=== PATIENT | female | born 1980 | race Caucasian/White ===

== ENCOUNTER 2016-04-15 09:33 | Inpatient (IN) | payer OTHER ==
[2016-04-15] MEDS ORDERED: traMADol 50 MG TAB PO PRN (14:17)
[2016-04-15] MEDS: KETOROLAC 15 MG/1 ML SDV IVP SCH ×2 (15:21→21:02)
[2016-04-15 15:52] LABS: % IMMATURE GRANULYOCYTES 0.4 % (0.0-1.1); ABSOLUTE IMMATURE GRANULOCYTES 0.06 10^3/uL (0.00-0.10); ADD DIFF? NO; ADD MORPH? NO; ADD SCAN? NO; ATYPICAL LYMPHOCYTE FLAG 0 (0-99); FRAGMENT RBC FLAG 0 (0-99); HEMATOCRIT 34.7 % (38.0-47.0); HEMOGLOBIN 11.6 g/dL (12.6-16.3); LEFT SHIFT FLG 0 (0-99); LIPEMIA HEMOLYSIS FLAG 80 (0-99); MEAN CELL HEMOGLOBIN 29.6 pg (27.9-34.1); MEAN CELL HEMOGLOBIN CONCENTR. 33.4 g/dL (32.4-36.7); MEAN CELL VOLUME 88.5 fL (81.5-99.8); MEAN PLATELET VOLUME 9.5 fL (8.7-11.7); PLATELET CLUMPS FLAG 10 (0-99); PLATELET COUNT 515 10^3/uL (150-400); RED BLOOD CELL COUNT 3.92 10^6/uL (4.18-5.33); RED CELL DISTRIBUTION WIDTH 12.3 % (11.5-15.2)
[2016-04-15] MEDS ORDERED: ZOLPIDEM TARTRATE 5 MG TAB PO PRN (15:59)
[2016-04-15] MEDS: ERTAPENEM 1 GM in NS 100 ML IV SCH (16:30)
[2016-04-15 16:31] LABS: ALANINE AMINOTRANSFERASE 26 IU/L (9-52); ALBUMIN 3.5 g/dL (3.5-5.0); ALKALINE PHOSPHATASE 86 IU/L (38-126); ANION GAP 15 mEq/L (8-16); ASPARTATE AMINOTRANSFERASE 16 IU/L (14-46); BILIRUBIN,TOTAL 0.6 mg/dL (0.1-1.4); CALCIUM 9.5 mg/dL (8.5-10.4); CARBON DIOXIDE 25 mEq/l (22-31); CHLORIDE 99 mEq/L (97-110); CREATININE 0.7 mg/dL (0.6-1.0); GLOMERULAR FILTRATION RATE > 60; GLUCOSE 105 mg/dL (70-100); POTASSIUM 4.2 mEq/L (3.5-5.2); SODIUM 139 mEq/L (134-144)
[2016-04-15] MEDS ORDERED: KETOROLAC 15 MG/1 ML SDV IM SCH (18:00)
[2016-04-15 18:54] LABS: COLOR YELLOW; LEUKOCYTE ESTERASE,URINE NEGATIVE (NEGATIVE); NITRITE,URINE NEGATIVE (NEGATIVE)
--- NOTE | 2016-04-15 20:02 | GHP ---
[f rep st] HISTORY AND PHYSICAL CHIEF COMPLAINT: Persistent pelvic pain, possible endometritis, unresponsive to outpatient therapy. HISTORY OF PRESENT ILLNESS: The patient is a 35-year-old, G1, P0, who was first diagnosed with intra uterine in January 2016. Ultrasound also noted at that time a 10 cm large fibroid, possib ly was pedunculated versus adnexal mass. The patient was noted to have cardiac activity with an intr auterine at 7 weeks and transferred to [facility] for OB care. She was noted a f ew weeks later in February 2016, to have a missed AB and patient was offered several treatment option s including outpatient D and C which she elected to do. She underwent D and C on 02/28/2016. She di d have a Pap before that that showed low-grade SABRINA plus possible bacterial vaginosis. Soon after the D and C, the patient developed pelvic pain that was moderate. It was felt that she was having sympt oms associated with her fibroids and that these symptoms would resolve. She was also noted to have a UTI and treated with antibiotics. I saw her next on 04/09/2016. She did have several weeks of pers istent pain and wanted to see if there were other options for treatment. CBC was drawn and her white count was 13. Her sedimentation rate was 54. She did have a low-grade t emp at 99.5, and it was felt that she had a possible endometritis with her history of recent Pap show ing shifting justa and having significant pelvic pain after D and C that was a not responding to ibup rofen. The patient was started on first Metrogel at her request as she did not want to go on oral th erapy. I gave her a 5-day course, but after 3 days, decided to go ahead with treatment for endometri tis as there is an increased risk for Asherman syndrome after D and C with infection, and patient was given a dose of Rocephin in the office, 250 mg, plus doxycycline 100 mg b.i.d. for 2 weeks. After 1 week of therapy, patient called stating that she was having no change in pain and persistent low-gra de fever and wanted further evaluation. She does have an MRI set to be done on 04/16/2016. Because patient was continuing to feel ill despite outpatient therapy, I decided to admit her for observation and possible inpatient antibiotic therapy, and further evaluation for other causes of pain and low-g rade fever, possibly septic pelvic thrombophlebitis versus abscess or other cause. OB HISTORY: G1 with 1 missed AB status post D and C. PAST MEDICAL HISTORY: None. PAST SURGICAL HISTORY: None. ALLERGIES: No known drug allergies. MEDICATIONS: Iron. PHYSICAL EXAMINATION: VITAL SIGNS: Blood pressure was 108/77, pulse 87, and in the office her temp was 99.6, in the hospital 36.6 Celsius. LUNGS: Clear to auscultation. ABDOMEN: Tense with some gua rding, no significant rebound, and decreased bowel sounds. PELVIC: Which had been done previously w as positive for bacterial vaginosis and loads of white blood cells, and bimanual previously was signi ficant for very painful uterus and some cervical motion tenderness. Repeat white blood count today was 13.5. ASSESSMENT AND PLAN: Possible persistent endometritis, failed outpatient therapy. We will admit for IV therapy, will have hospitalist for consultation and possibly ID as well. Per hospitalist, Dr. Tyler Jenkins, will do abdominal and pelvic CT with and without contrast to rule out abscess and possib ly septic pelvic thrombophlebitis or other causes. Blood cultures were drawn and urinalysis done as well. We will Toradol, tramadol, and Dilaudid for pain control. Zofran for nausea. Patient does gar ve an MRI scheduled for tomorrow which I think she should still do because that will further evaluate her fibroids and whether there truly is some degeneration or other abnormality, also for adnexal mas ses, but we will start with the CT scan tonight and go from there. /[id number]/MODL
[2016-04-15] MEDS ORDERED: ACETAMINOPHEN 500 MG TAB PO PRN (20:16)
--- NOTE | 2016-04-15 20:31 | CT ---
CT Scan of the Abdomen and Pelvis (With Contrast) Clinical Indications: Status post D&C. Pelvic pain. Technique: Dilute contrast was given orally prior to scanning. 85 mL of Isovue-300 were given intra venously by machine power injection. Multidetector helical CT imaging was performed from the diaphra gm to the symphysis pubis. Dose reduction techniques were utilized. Findings CT Abdomen: The lung bases are clear. The liver, spleen, and pancreas enhance unremarkably. The ri ght kidney is markedly enlarged, and the left kidney is extremely atrophic. There are small calcific ations present within both kidneys, without features of obstructive uropathy. Within the pelvis, there is marked uterine enlargement. The patient appears to have a bicornuate mayra eric, with marked fluid-filled distention of the right uterine horn, with hyperenhancement of tissue. This may represent retained products of conception, molar gestation, or may be related to a uterine infectious or malignant process. The left uterine horn is much smaller in size, with minimal fluid. These findings are most visible on the coronal reformatted series. Within the left adnexa, there is a septated cystic mass, which may be associated with the left ovary, measuring 5 cm in size. Minima l peritoneal free fluid. Impression: 1. Complex uterine pathology. 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 Differential considerations include retai lan products of conception, molar gestation, or infectious or malignant etiology. The left uterine h orn appears relatively decompressed. 2. Septated cystic mass within the left adnexa, 5 cm in size, uncertain etiology. Pelvic sonography may be of benefit in further characterization. 3. Markedly atrophic left kidney. Hypertrophy of the right kidney. Minimal nephrolithiasis bilater ally.
--- NOTE | 2016-04-15 20:32 | GCON ---
[f rep st] CONSULTATION MEDICINE CONSULTATION DATE OF CONSULTATION: 04/15/2016 CHIEF COMPLAINT: Pelvic pain. HISTORY OF PRESENT ILLNESS: The patient is a 35-year-old female, 1, para 0, who recently suffered a missed AB at 9 weeks 3 days gestation. She has had several ultrasounds, the first of which was performed on January 23, 2016, which showed an early gestational sac in addition to a 10 cm right adnexal mass. She then had a viable intrauterine on February 09 with cardiac activity, at which time the right adnexal mass was still noted. A third followup ultrasound on February 18 suggested that the adnexal mass was more consistent with a subserosal fibroid measuring 8 x 9 x 10 cm. At that time , no cardiac activity was noted, a missed AB was diagnosed. The patient was given options for management of her missed AB and ultimately underwent a D and C on February 27. Since her D and C, she initially did well for the first week. She has had no problems with vaginal bleeding. However, since March 08 she has been suffering from rather severe pelvic pain. Clinical workup at her [facility] office revealed a positive urine culture for which she was treated with Macrobid. This did not improve her symptoms. Clinical exam and another followup appointment was suggestive of endometritis and her white blood cell count at that time on April 09 was 13.5. She was started on oral doxycycline which she has been taking for the past several days, again with no significant improvement in her pain. She has been referred to a specialist for consideration of uterine preserving fibroid removal, as she would like to have kids eventually. However, her appointment is not for 2 weeks. Given her persistent pain, her [facility] opted to directly admit her to the hospital for further evaluation. A Medicine consult was requested to help determine the source of her pain. At this time, the patient is afebrile. She denies any change in her bowel habits such as diarrhea. She denies dysuria, though she does endorse some urinary frequency. She denies recent fevers. She also denies any abnormal vaginal discharge or purulent discharge. She has been able to tolerate p.o. without nausea and vomiting, though she does state she became a bit nauseous after taking half of a Avery for pain control. Her last quantitative hCG on April 09 was undetectable. PAST MEDICAL HISTORY: 1. Allergic rhinitis. 2. Fibrocystic breast disease with an excisional breast biopsy in February 2013 showing ductal hyperplasia with a small focus of atypical lobular hyperplasia. 3. Abnormal Pap smear with in 2012 with a history of colposcopy. Negative Pap smears since. 4. Large uterine fibroid. PAST SURGICAL HISTORY: 1. Left breast excisional biopsy in 2012. 2. Right knee surgery in 2008. 3. D and C in February 2016. MEDICATIONS: Please see [facility] for complete updated outpatient medication list. Current medications include occasional Zyrtec. ALLERGIES: She has no known drug allergies. SOCIAL HISTORY: The patient is a pharmacist at [employer]. She is engaged to her partner Henry who is present at the bedside during my evaluation. She is a lifetime nonsmoker. She reports social alcohol use prior to her . She denies drug use. FAMILY HISTORY: Her father had hypertension. REVIEW OF SYSTEMS: A 10-point review of systems was performed and was negative , except as per HPI. OBJECTIVE: CURRENT VITAL SIGNS: Temperature is 36.6, blood pressure 108/77, heart rate 90, respiratory rate 18, she is 98% on room air. GENERAL: The patient is awake, alert, oriented, in no acute distress. HEENT: Head is atraumatic, normocephalic. Pupils equal, round, reactive to light. Extraocular muscles intact. Oropharynx is clear. Mucous members are moist. NECK: Supple. There is no JVD. HEART: Regular rate and rhythm without murmur. LUNGS: Clear to auscultation bilaterally. ABDOMEN: Soft, minimal to mild distention. She has marked tenderness to palpation of the right lower quadrant, but is diffusely tender throughout the lower pelvic region with some voluntary guarding. There is no rigidity or evidence of peritoneal signs. EXTREMITIES: Without cyanosis, clubbing, or edema. NEUROLOGIC: Grossly nonfocal. LABORATORY DATA: CBC reveals a white blood cell count of 13.5 (which is unchanged from April 09), hemoglobin 1.6, platelets elevated at 515 (up from 502 on April 09). Complete metabolic panel is pending. CT abdomen and pelvis as ordered is also pending. ASSESSMENT AND PLAN: The patient is a 35-year-old 1, para 0, female who is 6 weeks status post D and C for a missed AB with known uterine fibroid who presents to the hospital with ongoing pelvic pain. 1. Pelvic pain. Her large uterine fibroid / mass is likely the etiology of her pelvic pain. She has had several days of treatment with oral doxycycline for presumed endometritis without any improvement. It is possible she has developed an Asherman syndrome after her recent procedure. I think it is unlikely that this is all explained by a UTI. I think she warrants a CT to evaluate for possible abscess or other complication suggestive of infection. I discussed the case with Infectious Disease and will treat with IV ertapenem to cover for possible endometritis. Blood cultures are pending. Will aim for pain control with tramadol, p.r.n. Toradol, and p.r.n. Dilaudid. She does have plans to see a specialist for removal of this fibroid and we may need to see about fast-tracking this given her level of discomfort if no other obvious source of infection or abnormality is found. She will be primarily managed by her [facility] physician and I will discuss with her our ongoing treatment plan. 2. Uterine fibroid. By prior u/s imaging. As above, this may be the underlying source of her pelvic pain. Will defer to ATOM[facility] W[facility] for further management recommendations. 3. Deep venous thrombosis prophylaxis. The patient is low risk. Will defer Lovenox for now, though should she require prolonged hospitalization, we will reconsider the addition of Lovenox. CODE STATUS: The patient is full code. DISPOSITION: Patient admitted to observation status. /[id number]/MODL MTDD
[2016-04-16] MEDS: KETOROLAC 15 MG/1 ML SDV IVP SCH ×2 (03:28→09:20)
[2016-04-16 06:02] LABS: % IMMATURE GRANULYOCYTES 0.3 % (0.0-1.1); ABSOLUTE IMMATURE GRANULOCYTES 0.04 10^3/uL (0.00-0.10); ADD DIFF? NO; ADD MORPH? NO; ADD SCAN? NO; ATYPICAL LYMPHOCYTE FLAG 0 (0-99); FRAGMENT RBC FLAG 0 (0-99); HEMATOCRIT 30.5 % (38.0-47.0); HEMOGLOBIN 10.4 g/dL (12.6-16.3); LEFT SHIFT FLG 0 (0-99); LIPEMIA HEMOLYSIS FLAG 90 (0-99); MEAN CELL HEMOGLOBIN 30.3 pg (27.9-34.1); MEAN CELL HEMOGLOBIN CONCENTR. 34.1 g/dL (32.4-36.7); MEAN CELL VOLUME 88.9 fL (81.5-99.8); MEAN PLATELET VOLUME 9.7 fL (8.7-11.7); PLATELET CLUMPS FLAG 0 (0-99); PLATELET COUNT 463 10^3/uL (150-400); RED BLOOD CELL COUNT 3.43 10^6/uL (4.18-5.33); RED CELL DISTRIBUTION WIDTH 12.5 % (11.5-15.2)
[2016-04-16] MEDS ORDERED: NS 1,000 ML IV SCH (08:15)
--- NOTE | 2016-04-16 08:30 | HOSPPROG ---
[id number] pathology, bicornuate uterus with complicated process in right horn. MRI today confirms complex fluid filled mass, unclear if originating from the myometrium vs adnexa. CA-125 is elevated at 73. Pt was transferred to [facility] for [facility] surgical management. Full code Dispo - will need to change to inpt as she is requiring further workup and management Subjective: Pt is pain controlled this am, happy about that. Had a fever last night. No N/V/D. Tolerating po. Objective: Vital Signs Temp Pulse Resp BP Pulse Ox 37.2 C 96 16 100/66 97 04/16/16 08:09 04/16/16 08:09 04/16/16 08:09 04/16/16 08:09 04/16/16 08:09 Laboratory Results 04/16/16 05:30 04/15/16 15:43 04/15/16 04/16/16 04/17/16 05:59 05:59 05:59 Intake Total 100 Balance 100 - Time Spent With Patient Time Spent with Patient: greater than 25 minutes Time Spent with Patient: Greater than 25 minutes spent on this patients care, greater than 50% of time spent counseling, educating, and coordinating care regarding the above mentioned plan. - Physical Exam Constitutional: no apparent distress Eyes: PERRL Ears, Nose, Mouth, Throat: moist mucous membranes Cardiovascular: regular rate and rhythym Respiratory: no respiratory distress Gastrointestinal: normoactive bowel sounds, other (marked tenderness of lower abdomen / pelvic region, R>L) Skin: warm Neurologic: AAOx3 Psychiatric: interacting appropriately ICD10 Worksheet Patient Problems: Problems Problem Status Diagnosed Pelvic mass in female Acute - ICD10 Problem Qualifiers (1) Pelvic mass in female
[2016-04-16] MEDS: ERTAPENEM 1 GM in NS 100 ML IV SCH (10:48)
[2016-04-16 11:01] VITALS: BP 95/62; PULSE 82; RESP 17; TEMP 98.4; O2SAT 95
--- NOTE | 2016-04-16 11:31 | MR ---
MRI Pelvis, Without and With Contrast History: Pelvic pain. History of demise and D&C. Increasing pain and fever. Negative beta-hCG. Comparison: CT 15 April 2016 and ultrasounds February and January 2016. Technique: MRI is performed of the pelvis using a 3 [place] MRI system. Sagittal, coronal, and axial im aging was obtained with standard imaging sequences. Images were obtained precontrast and postintraven ous contrast, 5 mL Gadavist. Findings: There is a heterogeneous lobulated mass centrally in the pelvis measuring 13 x 10 x 13 cm. The mass is displacing the uterus to the left. The mass appears contiguous with the fundus of the mayra eric on the left and could be an exophytic myometrial mass without a discernible fat plane between thi s lesion and the uterus. There is a large portion of cystic component to the lesion which is new from the prior ultrasounds. The solid portions of the lesion homogeneously enhance. The uterine configura tion does not have the appearance of a uterine anomaly. The endometrium displaced to the left is unre markable. There is a complex cyst in the left adnexal region measuring 5 cm. The right ovary appears displaced anteriorly and superiorly with follicles. This would indicate the etiology of this mass is not ovarian and more likely exophytic from the myometrium. No significant pelvic or inguinal lymphade nopathy. Impression: Complex cystic and solid mass within the pelvis which appears to be originating from the left uterine myometrium, likely an exophytic myometrial mass. With the large size, heterogeneous appe arance, and change from the prior ultrasound this is worrisome for leiomyosarcoma. Another considerat ion would be hemorrhage with cystic degeneration in an atypical exophytic leiomyoma. This does not gar ve the typical appearance for infection. This was discussed with Dr. Aruna Jenkins,, Dr. Divya Anne, and Dr. Heber Allen. This also reviewed by Dr. Marcin Dougherty who concurs.
[2016-04-16] MEDS: HYDROmorphONE/DILAUDID 1 MG/ML SYR IVP PRN ×2 (13:07→13:08)
--- NOTE | 2016-04-16 14:51 | SOAPPROG ---
SOAP Progress Note Assessment/Plan: Assessment: PT ADMITTED YESTAERDAY for empiric treatment for inpt IV antibiotics for failed out pt treatment of endometritis, she has had pain meds and fleeling better , CT scan done and has multiple abn findings in uterus, MRI shows enlarging mass 13cm suspicious for leiomyosarcoma vs degenerating fibroid Plan:call to Dr. Shobha Stanley for consult and transfer, she will review films and make a plan , pt to be NPO and may undergo surgery this jose if possible, 04/16/16 14:47 Subjective: feeling better with pain meds , some bowel discomfort Objective: Vital Signs Temp Pulse Resp BP Pulse Ox 36.9 C 82 17 95/62 L 95 04/16/16 10:58 04/16/16 10:58 04/16/16 10:58 04/16/16 10:58 04/16/16 10:58 Laboratory Results 04/16/16 05:30 04/15/16 15:43 04/15/16 04/16/16 04/17/16 05:59 05:59 05:59 Intake Total 100 Balance 100 lungs CTA ,abd tense and fullness up to umbilicus
--- NOTE | 2016-04-16 19:22 | GCON ---
[f rep st] CONSULTATION INPATIENT INFECTIOUS DISEASE CONSULTATION. REFERRING PHYSICIAN: Aruna Jenkins MD REASON FOR REFERRAL: Possible endometritis. HISTORY OF PRESENT ILLNESS: Patient is a 35-year-old female, who was admitted to [facility] on 04/15/2016 for 4-5 weeks of persistent pelvic pain, possibly dome endometritis. She was jonathon gnosed with an intrauterine in January of 2016. When she had an ultrasound at that time, a large 10 cm fibroid was noted. However, in late February of 2016, she was noted to have a missed a bortion, and the patient elected to undergo an outpatient D and C. She underwent this procedure on 04/30/2015. After the D and C, the patient developed moderate pelvic pain which continued over the la st 4-5 weeks. She was treated with antibiotics for a potential urinary tract infection, and also sta rted on a course of oral doxycycline for a possible diagnosis of endometritis. She also attempted a course of Metrogel. There was no improvement in her symptoms. The patient was admitted for pain con trol and observation. We are consulted for possible bacterial endometritis nonresponsive to outpatie nt therapy. Currently, the patient is resting in her hospital bed. She notes a feeling of pelvic an d lower abdominal fullness and tenderness in the area. She had 1 fever yesterday. PAST MEDICAL HISTORY: 1. Past neurologic complaints of unclear etiology, self resolved. 2. Missed spontaneous status post dilatation and curettage. PAST SURGICAL HISTORY: As above. ANTIBIOTICS: Ertapenem. ALLERGIES: No known drug allergies. SOCIAL HISTORY: The patient denies any significant tobacco, alcohol or drug use. 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 FAMILY HISTORY: Reviewed but noncontributory. REVIEW OF SYSTEMS: Other than that detailed above in history of present illness, a comprehensive 10- system review is negative. PHYSICAL EXAMINATION: VITAL SIGNS: Temperature maximum is 38.3, temperature current is 36.9, heart rate is 82, respiratory rate is 17, blood pressure is 95/62. GENERAL: The patient is a well-formed, well-nourished female in no acute distress. She is not toxic in appearance. She is alert and orien moe x3. She is in a pleasant demeanor. HEENT: Normocephalic for age, atraumatic. No scleral icter us. No oral lesion. No drainage from the nares. HEART: Regular rate and rhythm. No significant p eripheral edema. ABDOMEN: Soft, distended in the lower sections, mildly tender. SKIN: Warm and dr y to the touch. No rash or lesion noted. LABORATORY DATA: Patient has a CBC dated 04/16/2016 that shows a white blood cell count of 13.5, hem oglobin of 10.4, hematocrit of 30.5, platelet count of 463, differential is left shifted with 79% seg mented neutrophils. Serum chemistries on 04/15/2016 are all within normal limits. Quantitative beta HCG is less than 2.4. CA-125 antigen is elevated at 73.1. Urinalysis on 04/15/2016 within normal l imits. MICROBIOLOGIC DATA: The patient has blood cultures dated 04/15/2016 which are pending. RADIOLOGIC DATA: Patient has an abdominal CT with contrast dated 04/15/2016 that shows complex uteri ne pathology. There appears on the CT scan to be a bicornuate uterus with marked distention of the r ight uterine horn and hyperenhancement of solid tissue. There is a septate cystic mass within the le ft adnexa, 5 cm in size of uncertain etiology. The patient has a pelvic MRI with gadolinium dated . This shows a complex cystic and solid mass within the pelvis which appears to be originati ng from the left uterine myometrium, likely an exophytic myometrial mass. The heterogeneous appearan ce, large size and change from the prior ultrasound is worrisome for leiomyosarcoma. Differential wo uld include hemorrhage within the cystic degeneration and an atypical exophytic leiomyoma. This is n ot typical for infection. ASSESSMENT: Pelvic mass, likely of uterine origin and unlikely to be infectious. At this point, I t hink ertapenem could be continued as the patient really should be referred for urgent surgery for mas s removal and diagnosis. Discussed case with Dr. Anne as well as Dr. Jenkins and the radiologist. PLAN: 1. Continue ertapenem as needed for perioperative prophylaxis. 2. Expedite transfer to Gynecologic/Oncologic Service for impending surgery. /[id number]/MODL
== END 2016-04-16 13:15 | disposition short-term general hospital (02) | DRG 761 ==
LOC: INTOOBSV 12:56 → FOB 12:56 → OBSVTOIN 04-16 08:25
PROVIDERS: ADMIT Hospitalist; ATTEND Obstetrics & Gynecology Gynecology
DX: N85.9 Noninflammatory disorder of uterus, unspecified (principal); Q51.3 Bicornate uterus; N60.19 Diffuse cystic mastopathy of unspecified breast; R79.89 Other specified abnormal findings of blood chemistry
CPT/HCPCS: 86304-90; G0378; J1170; J1335; J1885

== ENCOUNTER → 2016-04-30 | Outpatient (CLI) | payer OTHER ==
[~2016-04-30] MED LIST: IOTHALAMATE MEG (CYSTO-CONRAY II) 250 ML VIAL BLADIN ONE
== END ==
LOC: FIMAGING 09:33
DX: Z09 Encounter for follow-up examination after completed treatment for conditions other than malignant neoplasm (principal)
CPT/HCPCS: Q9961

== ENCOUNTER → 2016-12-30 | Outpatient (CLI) | payer OTHER ==
[~2016-12-30] MED LIST changes: +GADOBUTROL 10 ML VIAL IVP ONE; -IOTHALAMATE MEG (CYSTO-CONRAY II) 250 ML VIAL BLADIN ONE
== END ==
LOC: FIMAGING 11:55
PROVIDERS: ATTEND Surgery
DX: Z12.39 Encounter for other screening for malignant neoplasm of breast (principal); Z85.3 Personal history of malignant neoplasm of breast
CPT/HCPCS: 0159T; A9585; C8908